=== PATIENT | female | born 1960 | race Caucasian/White ===

== ENCOUNTER 2017-03-13 14:13 | Emergency (ER) | payer BC ==
[2017-03-13] MEDS ORDERED: BENADRYL 50 MG/ML IV ONE (14:37)
[2017-03-13] MEDS ORDERED: MORPHINE SULFATE 10 MG/ML IV ONE (14:37)
[2017-03-13] MEDS ORDERED: Sodium Chloride 0.9% 1000 ML 1,000 ML IV STA (14:37)
[2017-03-13] MEDS ORDERED: Sodium Chloride 0.9% 1000 ML 1,000 ML ONE (14:40)
[2017-03-13] MEDS ORDERED: MORPHINE SULFATE 10 MG/ML ONE (14:40)
[2017-03-13] MEDS ORDERED: BENADRYL 50 MG/ML ONE (14:40)
[2017-03-13] MEDS ORDERED: MORPHINE SULFATE 4 MG INJ IV ONE (14:54)
[2017-03-13] MEDS ORDERED: MORPHINE SULFATE 4 MG INJ ONE (14:56)
[2017-03-13 15:00] LABS: Mean Cell Volume 94.7 fl (78-100); Mean Corpuscular Hemoglobin 30.8 pg (26-32); Mean Platelet Volume 10.6 fl (6-9.5); Platelet Count 301 K/mm3 (150-450); Red Blood Count 4.12 M/mm3 (4.1-5.4); Red Cell Distribution Width 13.4 % (11.5-14.0); White Blood Count 11.6 K/mm3 (4.0-10.5)
[2017-03-13 15:01] LABS: Collection Type CLEAN CATCH
[2017-03-13 15:02] LABS: COMPLETE URINE MICROSCOPIC? NO
--- NOTE | 2017-03-13 15:04 | ERPHSYRPT ---
- History of Present Illness Time Seen by Provider: 03/13/17 14:35 Source: patient Patient Subjective Stated Complaint: pt co pain to left abd area that radiates to back woke her up suddenly ,with some nausea Triage Nursing Assessment: pt alert,walked in, thrashing in bed, abd soft and tender to touch Physician History: CC: left flank pain Hx: 56 y/o patient of [facility] [employer] with hx of kidney stone disease. She works as nurse. [place] [employer] a little nausea this AM. Was sleeping and awoke [employer] with severe pain left abd and left flank. Normal urination. Nausea without vomiting. No fever or chills. A year since prior kidney stone. Timing/Duration: today Severity: severe Allergies/Adverse Reactions: bupropion HCl [From Wellbutrin] Allergy (Verified 03/13/17 14:24) Sulfa (Sulfonamide Antibiotics) Adverse Reaction (Verified 03/13/17 14:24) tramadol HCl [From Ultram] Adverse Reaction (Verified 03/13/17 14:24) Home Medications: Albuterol 8 gm Mdi Hfa [Ventolin Hfa MDI] 8 gm IH QID 03/16/15 [History] Hydrocodone Bit/Acetaminophen [[place] 7.5-325 Tablet] 1 ea PO QID 03/16/15 [ History] Ezetimibe 10 mg [Zetia 10 MG] 10 mg PO DAILY 04/03/16 [History] Omeprazole 20 MG [Prilosec 20 mg] 20 mg PO DAILY 04/03/16 [History] Hx Tetanus, Diphtheria Vaccination/Date Given: Yes Hx Influenza Vaccination/Date Given: Yes Hx Pneumococcal Vaccination/Date Given: No Immunizations Up to Date: Yes - Review of Systems Constitutional: No Fever, No Chills Eyes: No Symptoms Ears, Nose, & Throat: No Symptoms Respiratory: No Cough Cardiac: No Chest Pain Abdominal/Gastrointestinal: Abdominal Pain (left flank), Nausea, No Vomiting Genitourinary Symptoms: Flank Pain (left), No Hematuria Skin: No Rash Neurological: No Headache All Other Systems: Reviewed and Negative - Past Medical History Pertinent Past Medical History: Yes Neurological History: No Pertinent History ENT History: No Pertinent History Cardiac History: No Pertinent History Respiratory History: COPD Endocrine Medical History: No Pertinent History Musculoskeletal History: No Pertinent History GI Medical History: Diverticulitis, Diverticulosis, GERD, Hernia History: Other Psycho-Social History: No Pertinent History Female Reproductive Disorders: No Pertinent History Other Medical History: KIDNEY STONE IN PAST. UMBILICAL HERNIA REPAIR - Past Surgical History Past Surgical History: Yes Neuro Surgical History: No Pertinent History Cardiac: No Pertinent History Respiratory: No Pertinent History Gastrointestinal: Rectal Surgery Genitourinary: No Pertinent History Musculoskeletal: No Pertinent History Female Surgical History: Hysterectomy Other Surgical History: BLADDER LIFT. RECTAL PROLAPSE FIX - Social History Smoking Status: Current every day smoker How long have you smoked: 30 Exposure to second hand smoke: Yes Drug Use: none Patient Lives Alone: No - Female History Hx Last Menstrual Period: hyster - Nursing Vital Signs Nursing Vital Signs: Initial Vital Signs Pulse Rate 77 Respiratory Rate 16 Blood Pressure [Right Arm] 104/55 Pain Intensity 3 - Physical Exam General Appearance: alert, other (uncomfortable appearing) Eye Exam: PERRL/EOMI Ears, Nose, Throat Exam: normal ENT inspection, moist mucous membranes Neck Exam: normal inspection, non-tender, supple Respiratory Exam: normal breath sounds, lungs clear Cardiovascular Exam: regular rate/rhythm Gastrointestinal/Abdomen Exam: soft, No tenderness, No distention, No mass, No guarding Back Exam: CVA tenderness (left) Extremity Exam: normal inspection, normal range of motion Neurologic Exam: alert, oriented x 3, cooperative, sensation nml, No motor deficits Skin Exam: warm, dry, No rash SpO2 Interpretation: normal SpO2: 97 Oxygen Delivery: Room Air - Course Nursing assessment & vital signs reviewed: Yes Ordered Tests: Active Orders 24 hr Category Date Time Status Clean Catch Urine Specimen STAT Care 03/13/17 14:37 Active IV Insertion STAT Care 03/13/17 14:37 Active ABDOMEN AND PELVIS W/0 CONTRAS [CT] Stat Exams 03/13/17 14:38 Taken CBC W DIFF Stat Lab 03/13/17 14:35 Completed CMP Stat Lab 03/13/17 14:35 Completed Manual Differential NC Stat Lab 03/13/17 14:35 Completed UA Stat Lab 03/13/17 15:00 Completed Medication Summary Discontinued Medications Generic Name Dose Route Start Last Admin Trade Name Freq PRN Reason Stop Dose Admin Diphenhydramine HCl 25 mg 03/13/17 14:37 03/13/17 14:48 Benadryl 50 Mg/Ml IV 03/13/17 14:38 25 mg STAT ONE Administration Diphenhydramine HCl Confirm 03/13/17 14:40 Benadryl 50 Mg/Ml Administered 03/13/17 14:41 Dose 50 mg .ROUTE .STK-MED ONE Sodium Chloride 1,000 mls @ 999 mls/hr 03/13/17 14:37 03/13/17 14:51 Sodium Chloride 0.9% 1000 Ml IV 03/13/17 15:37 999 mls/hr .Q1H1M STA Administration Sodium Chloride Confirm 03/13/17 14:40 Sodium Chloride 0.9% 1000 Ml Administered 03/13/17 14:41 Dose 1,000 mls @ ud .ROUTE .STK-MED ONE Morphine Sulfate 5 mg 03/13/17 14:37 03/13/17 14:50 Morphine Sulfate 10 Mg/Ml IV 03/13/17 14:38 5 mg STAT ONE Administration Morphine Sulfate Confirm 03/13/17 14:40 Morphine Sulfate 10 Mg/Ml Administered 03/13/17 14:41 Dose 10 mg .ROUTE .STK-MED ONE Morphine Sulfate 4 mg 03/13/17 14:54 03/13/17 15:00 Morphine Sulfate 4 Mg Inj IV 03/13/17 14:55 4 mg STAT ONE Administration Morphine Sulfate Confirm 03/13/17 14:56 Morphine Sulfate 4 Mg Inj Administered 03/13/17 14:57 Dose 4 mg .ROUTE .STK-MED ONE Lab/Rad Data: Laboratory Result Diagrams 03/13/17 14:35 03/13/17 14:35 Laboratory Results 03/13/17 03/13/17 03/13/17 Range/Units 15:00 14:35 14:35 WBC 11.6 H (4.0-10.5) K/mm3 RBC 4.12 (4.1-5.4) M/mm3 Hgb 12.7 (12.0-16.0) gm/dl Hct 39.0 (35-47) % MCV 94.7 (78-100) fl MCH 30.8 (26-32) pg MCHC 32.6 (32-36) g/dl RDW 13.4 (11.5-14.0) % Plt Count 301 (150-450) K/mm3 MPV 10.6 H (6-9.5) fl Segmented Neutrophils 48 (36.0-66.0) % Lymphocytes (Manual) 46 H (24-44) % Monocytes (Manual) 4 (0.0-12.0) % Eosinophils (Manual) 2 (0.00-3.0) % Platelet Estimate NORMAL (NORMAL) Sodium 143 (136-145) mEq/L Potassium 4.0 (3.5-5.1) mEq/L Chloride 106 (98-107) mEq/L Carbon Dioxide 28.8 (21-32) mEq/L Anion Gap 12.3 (5-15) MEQ/L BUN 10 (9-20) mg/dL Creatinine 0.83 (0.55-1.30) mg/dl Estimated GFR > 60 ML/MIN Glucose 102 (70-110) MG/DL Calcium 8.9 (8.5-10.1) mg/dL Total Bilirubin 0.4 (0.2-1.0) mg/dL AST 20 (15-37) U/L ALT 25 (12-78) U/L Alkaline Phosphatase 109 (46-116) U/L Serum Total Protein 7.1 (6.4-8.2) gm/dL Albumin 3.7 (3.4-5.0) g/dL Ur Collection Type CLEAN CATCH Urine Color YELLOW (YELLOW) Urine Appearance CLEAR (CLEAR) Urine pH 6.0 (5-6) Ur Specific [place]rence 1.020 (1.005-1.025) Urine Protein NEGATIVE (Negative) Urine Glucose (UA) NEGATIVE (NEGATIVE) mg/dL Urine Ketones NEGATIVE (NEGATIVE) Urine Nitrite NEGATIVE (NEGATIVE) Urine Bilirubin NEGATIVE (NEGATIVE) Urine Urobilinogen 0.2 (0-1) mg/dL Urine WBC (Auto) NEGATIVE (NEGATIVE) Urine RBC (Auto) NEGATIVE (0-5) Andres/ul Specimen Received 03/13/17 1500 - Progress Progress Note: 03/13/17 15:[address] to assess for renal stone disease. 03/13/17 16:[address] Likely just passed. Pain better. Will release with renal stone instr. Counseled pt/family regarding: lab results, diagnosis, need for follow-up, rad results - Departure Time of Disposition: 16:06 Departure Disposition: Home Clinical Impression: Renal colic on left side, Bladder stone Condition: Stable Critical Care Time: No Referrals: SHANEKA LARKIN, SORAIDA [Primary Care Provider] - Instructions: Kidney Stones Additional Instructions: Plenty of fluids. No driving today. Use your ibuprofen and hydrocodone as already prescribed for pain. Return for fever, recurrent vomiting, uncontrolled pain, or concerns. Follow up next week with SORAIDA Larkin. Strain urine for stone.
[2017-03-13 15:19] LABS: ALBUMIN 3.7 g/dL (3.4-5.0); ALKALINE PHOSPHATASE 109 U/L (46-116); ANION GAP 12.3 MEQ/L (5-15); BILIRUBIN,TOTAL 0.4 mg/dL (0.2-1.0); BLOOD UREA NITROGEN 10 mg/dL (9-20); CHLORIDE 106 mEq/L (98-107); Carbon Dioxide 28.8 mEq/L (21-32); Glucose 102 MG/DL (70-110); SGOT/AST 20 U/L (15-37); SGPT/ALT 25 U/L (12-78); SODIUM 143 mEq/L (136-145); Total Protein 7.1 gm/dL (6.4-8.2)
[2017-03-13 15:43] LABS: Eosinophil 2 % (0.00-3.0); Platelet Estimate NORMAL (NORMAL); Total Cells Counted 100
--- NOTE | 2017-03-13 16:12 | XRAY ---
Exam: CT of the abdomen and pelvis without IV contrast from 03/13/2017. CTDI: 15.44 Comparison: CT of the abdomen and pelvis without IV contrast from 04/03/2016. Indication: Left flank pain since this morning, prior history of renal stones. Technique: Non-IV contrast axial images were obtained through the abdomen and pelvis. Reconstructed coronal and sagittal images were created and reviewed. Findings: A prominent calcified granuloma is seen within the right middle lobe representing no change. The remainder the visualized lung bases appears clear. I cannot exclude a small hiatal hernia. Compared to the prior study, the left renal pelvis is distended. There is occasional slight prominence of the left ureter, but no definite ureterolith is seen. I do note a tiny calcification within the urinary bladder posteriorly in the midline. This is suggestive of a recently passed left ureteral stone. The right kidney reveals no calculi or hydronephrosis. I see no definite right ureteral stone. Assessment of the solid organs is limited on non-IV contrast study. However, no significant abnormality of the liver, spleen, pancreas, or adrenal glands is seen. There is mild distention of the gallbladder which reveals no dense calcifications within it or gallbladder wall thickening. Moderate atherosclerotic vascular calcification is seen within the abdominal aorta, iliac arteries, and both common femoral arteries. Correlate clinically regarding diabetes. No abnormal retroperitoneal lymphadenopathy is seen. No bowel distention is seen. No free air or free fluid is seen. A tiny fat-containing umbilical hernia is seen. Surgical clips are seen within the right hemipelvis representing no change. Apparently, the patient is status post appendectomy and hysterectomy. The ovaries are not definitely seen and have presumably been removed surgically as well. I note mild sigmoid colon diverticulosis without evidence of diverticulitis. Scattered stool is seen throughout the colon, the largest amount seen within the distal rectosigmoid colon. Correlate clinically regarding constipation. The urinary bladder is partially empty. The skeleton reveals moderate to marked degenerative disc disease at L5-S1 which appears similar to the prior study. No acute fracture or aggressive bone lesion is seen. Impression: 1. I note mild left-sided pelvocaliectasis. No significant left ureteral distention is seen, although I see a tiny punctate calcification within the posterior urinary bladder midline suggestive of a recently passed stone, probably from the left. 2. Prior significant right-sided hydronephrosis noted on 04/03/2016 is no longer seen indicating resolution of obstruction on this side. Nor do I see a right ureteral stone. 2. Questionable small hiatal hernia and tiny fat-containing umbilical hernia. 3. Surgical clips are seen within the right hemipelvis. I'm given a history of prior appendectomy and hysterectomy. There may have been prior oophorectomy as well. 4. Sigmoid colon diverticulosis without evidence of acute diverticulitis. Stool burden is mild to moderate within the colon, most pronounced within the distal rectosigmoid colon. 5. No other acute process is seen within the abdomen or pelvis. Moderate atherosclerotic vascular calcification is seen. Correlate clinically regarding diabetes. 6. Advanced degenerative disc disease is seen at L5-S1 representing no significant change from 04/03/2016.
[2017-03-13 16:21] VITALS: BP 105/55; PULSE 68; O2SAT 98
== END 2017-03-13 16:21 | disposition home or self-care (01) ==
LOC: ED 14:13
DX: N23 Unspecified renal colic (principal); N21.0 Calculus in bladder; R11.0 Nausea; R10.9 Unspecified abdominal pain
CPT/HCPCS: 36000; 36415; 74176; 80053; 81002; 85025; 96360; 96374; 96375; 96376; 99284; J1200; J2270

== ENCOUNTER 2022-08-22 18:19 | Emergency (ER) | payer BC, OTHER ==
[2022-08-22] MEDS ORDERED: ZOFRAN ODT 4 MG PO ONE (19:10)
[2022-08-22] MEDS ORDERED: Hydromorphone 1 mg/ml Injection IM ONE (19:10)
[2022-08-22] MEDS ORDERED: ZOFRAN ODT 4 MG ONE (19:15)
[2022-08-22] MEDS ORDERED: Hydromorphone 1 mg/ml Injection ONE (19:15)
--- NOTE | 2022-08-22 19:21 | ERPHSYRPT ---
- History of Present Illness Time Seen by Provider: 08/22/22 19:00 Source: patient, family Exam Limitations: no limitations Patient Subjective Stated Complaint: Left ankle/foot pain Triage Nursing Assessment: Patient brought back to ED per w/c and transferred self to bed. Patient A+ O X 3. Patient's skin pink, warm and dry. Patient complains of left ankle foot injury. Patient states she was in a patient's room for her job and slipped on liquid that was on the floor and causing her to land on her left ankle. Patient complains of pain 10/10 to left ankle/foot. Swelling noted to left ankle/foot. 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 Initially, patient was able to bear weight. However when she sat down for a bit and then attempted to stand up and put weight on it, she had excruciating pain in the left heel and left ankle. Patient states that she has had [place] in the past, morphine in the past and Dilaudid in the past all without any problems. Method of Injury: twisted Occurred: just prior to arrival Quality: constant, aching, throbbing Severity of Pain-Max: moderate Severity of Pain-Current: moderate Lower Extremities Pain: foot: left, ankle: left Modifying Factors: Improves With: movement Associated Symptoms: other (To bear weight) Allergies/Adverse Reactions: bupropion HCl [From Wellbutrin] Allergy (Verified 08/22/22 18:47) Sulfa (Sulfonamide Antibiotics) Adverse Reaction (Verified 08/22/22 18:47) tramadol HCl [From Ultram] Adverse Reaction (Verified 08/22/22 18:47) Home Medications: Albuterol 8 gm Mdi Hfa [Ventolin Hfa MDI] 8 gm IH QID 03/16/15 [History] Hydrocodone/Acetaminophen [[place] 7.5-325 Tablet] 1 ea PO QID 03/16/15 [History] Ezetimibe 10 mg [Zetia 10 MG] 10 mg PO DAILY 04/03/16 [History] Omeprazole 20 MG [Prilosec 20 mg] 20 mg PO DAILY 04/03/16 [History] Hx Tetanus, Diphtheria Vaccination/Date Given: Yes Hx Influenza Vaccination/Date Given: Yes Hx Pneumococcal Vaccination/Date Given: No Immunizations Up to Date: Yes Travel Risk - International Travel Have you traveled outside of the country in past 3 weeks: No - Coronavirus Screening Are you exhibiting any of the following symptoms?: No Close contact with a COVID-19 positive Pt in past 14-21 Days: No - Vaccine Status Have you recieved a Covid-19 vaccination: Yes [employer]: [employer] - Vaccination Dates Date of 2cond Vaccination (if applicable): na - Review of Systems Constitutional: No Symptoms Eyes: No Symptoms Ears, Nose, & Throat: No Symptoms Respiratory: No Symptoms Cardiac: No Symptoms Abdominal/Gastrointestinal: No Symptoms Genitourinary Symptoms: No Symptoms Musculoskeletal: Fall, Injury (Left foot and ankle) Skin: No Symptoms Neurological: No Symptoms Psychological: No Symptoms Endocrine: No Symptoms Hematologic/Lymphatic: No Symptoms Immunological/Allergic: No Symptoms All Other Systems: Reviewed and Negative - Past Medical History Pertinent Past Medical History: Yes Neurological History: No Pertinent History ENT History: No Pertinent History Cardiac History: High Cholesterol Respiratory History: COPD Endocrine Medical History: No Pertinent History Musculoskeletal History: Arthritis, Degenerative Disk Disease GI Medical History: Diverticulitis, Diverticulosis, GERD, Hernia History: Other Psycho-Social History: No Pertinent History Female Reproductive Disorders: No Pertinent History Other Medical History: KIDNEY STONE IN PAST. UMBILICAL HERNIA REPAIR - Past Surgical History Past Surgical History: Yes Neuro Surgical History: No Pertinent History Cardiac: No Pertinent History Respiratory: No Pertinent History Gastrointestinal: Rectal Surgery Genitourinary: No Pertinent History Musculoskeletal: No Pertinent History Female Surgical History: Hysterectomy Other Surgical History: BLADDER LIFT. RECTAL PROLAPSE FIX - Social History Smoking Status: Current every day smoker How long have you smoked: 30 Exposure to second hand smoke: No Drug Use: none Patient Lives Alone: No - Nursing Vital Signs Nursing Vital Signs: Initial Vital Signs Temperature 97.3 F 08/22/22 18:48 Pulse Rate 83 08/22/22 18:48 Respiratory Rate 18 08/22/22 18:48 Blood Pressure 111/92 08/22/22 18:48 O2 Sat by Pulse Oximetry 98 08/22/22 18:48 Pain Scale Pain Intensity 5 - Physical Exam General Appearance: mild distress, alert, anxiety, thin Eyes, Ears, Nose, Throat Exam: normal ENT inspection, moist mucous membranes Neck Exam: normal inspection, non-tender, supple, full range of motion Cardiovascular/Respiratory Exam: chest non-tender, no respiratory distress Gastrointestinal/Abdominal Exam: non-tender Back Exam: normal inspection, normal range of motion, No CVA tenderness, No vertebral tenderness Hips Exam: bilateral: non-tender, normal inspection, normal range of motion, no evidence of injury Legs Exam: bilateral leg: non-tender, normal inspection, normal range of motion, no evidence of injury Knees Exam: bilateral knee: non-tender, normal inspection, normal range of motion, no evidence of injury Ankle Exam: right ankle: non-tender, normal inspection, no evidence of injury, left ankle: bone tenderness, soft tissue tenderness, swelling (+/-), bilateral ankle: normal range of motion Foot Exam: right foot: non-tender, left foot: bone tenderness (Left heel), soft tissue tenderness, bilateral foot: normal inspection, normal range of motion, no evidence of injury Neuro/Tendon Exam: normal sensation, normal motor functions, normal tendon functions, responds to pain, no evidence tendon injury Mental Status Exam: alert, oriented x 3, cooperative Skin Exam: normal color, warm, dry SpO2 Interpretation: normal SpO2: 98 O2 Delivery: Room Air - Course Nursing assessment & vital signs reviewed: Yes Ordered Tests: Active Orders 24 hr Category Date Time Status Cold Application STAT Care 08/22/22 18:46 Active ANKLE (3 VIEWS) Stat Exams 08/22/22 19:19 Taken FOOT (MINIMUM 3 VIEWS) Stat Exams 08/22/22 19:19 Taken Medication Summary Discontinued Medications Generic Name Dose Route Start Last Admin Trade Name Emerald PRN Reason Stop Dose Admin Hydromorphone HCl 1 mg 08/22/22 19:10 08/22/22 19:17 Hydromorphone 1 Mg/1ml Inj 1 Mg/Ml Syringe IM 08/22/22 19:11 1 mg STAT ONE Administration Hydromorphone HCl Confirm 08/22/22 19:15 Hydromorphone 1 Mg/1ml Inj 1 Mg/Ml Syringe Administered 08/22/22 19:16 Dose 1 mg .ROUTE .STK-MED ONE Ondansetron HCl 4 mg 08/22/22 19:10 08/22/22 19:17 Zofran 4 Mg/Udtablet Orally Disintegrating PO 08/22/22 19:11 4 mg STAT ONE Administration Ondansetron HCl Confirm 08/22/22 19:15 Zofran 4 Mg/Udtablet Orally Disintegrating Administered 08/22/22 19:16 Dose 4 mg .ROUTE .STK-MED ONE - Progress Progress: improved, pain not gone completely, re-examined Progress Note: 08/22/22 20:45 X-ray of left foot shows no acute fracture or dislocation. X-ray of left ankle shows no acute fracture or dislocation. Counseled pt/family regarding: diagnosis, need for follow-up, rad results - Departure Departure Disposition: Home Clinical Impression: Left ankle sprain Condition: Stable Critical Care Time: No Referrals: GHASSAN VALENZUELA NP [Primary Care Provider] - Follow up/PCP as directed Additional Instructions: Wear Varun wrap for comfort. May use crutches to help in slowly increasing your weightbearing. Follow[facility]up at the [facility] orthopedic clinic Monday through Monday 8 AM to 10 AM if your symptoms worsen or persist beyond 48 hours. When you are home, elevate your left leg above the level of your heart. Ice pack to the left foot and ankle 3 times a day for the next 48 hours. Take your own pain medication.
[2022-08-22 21:08] VITALS: BP 132/54; PULSE 72; O2SAT 96
--- NOTE | 2022-08-23 08:50 | XRAY ---
Indication: Pain following fall. Comparison: None 3 nonweightbearing views left foot demonstrates mild osteopenia, tiny plantar heel spur, and tiny cuboid accessory ossicle. No other bony, articular, or soft tissue abnormalities.
--- NOTE | 2022-08-23 08:51 | XRAY ---
Indication: Pain following fall. Comparison: None 3 view left ankle demonstrates mild osteopenia and tiny plantar heel spur. No other bony, articular, or soft tissue abnormalities.
== END 2022-08-22 21:21 | disposition home or self-care (01) ==
LOC: ED 18:19
DX: S93.402A Sprain of unspecified ligament of left ankle, initial encounter (principal); W01.0XXA Fall on same level from slipping, tripping and stumbling without subsequent striking against object, initial encounter; Y93.F9 Activity, other caregiving; Y92.122 Bedroom in nursing home as the place of occurrence of the external cause; Y99.0 Civilian activity done for income or pay; M25.572 Pain in left ankle and joints of left foot; E78.5 Hyperlipidemia, unspecified; J44.9 Chronic obstructive pulmonary disease, unspecified; Z72.0 Tobacco use; Z79.899 Other long term (current) drug therapy
CPT/HCPCS: 73610; 73630; 96372; 99283; J1170; Q0162

== ENCOUNTER 2022-11-10 18:37 | Emergency (ER) | payer BC ==
[2022-11-10 19:23] LABS: ALBUMIN 4.3 g/dL (3.5-5.0); ALKALINE PHOSPHATASE 122 U/L (38-126); ANION GAP 11.7 MEQ/L (5-15); BLOOD UREA NITROGEN 22 mg/dL (7-17); CHLORIDE 102 mmol/L (98-107); Calcium 9.2 mg/dL (8.4-10.2); Carbon Dioxide 23 mmol/L (22-30); Creatinine 1 0.74 mg/dL (0.52-1.04); EST GLOMERULAR FILTRATION RATE > 60.0 ML/MIN; Glucose 139 mg/dL (74-106); NT PRO BNP 50.4 pg/mL (0-900); Potassium 3.5 mmol/L (3.5-5.1); SGOT/AST 36 U/L (14-36); SGPT/ALT 32 U/L (0-35); SODIUM 134 mmol/L (137-145); Total Protein 7.9 g/dL (6.3-8.2)
--- NOTE | 2022-11-10 20:51 | ERPHSYRPT ---
- History of Present Illness Time Seen by Provider: 11/10/22 20:26 Source: patient Exam Limitations: no limitations Patient Subjective Stated Complaint: Pt states "I have been sick since around 10/29/22, I went to [facility] on 10/31/22 with swollen glands, sore throat and fa tigue. I was prescribed cefdinir and I take my tomorrow. I went back today because I am still fatigued, short of breath when doing something and lost my taste. I was tested for covid today and was negative. The provider called me tonight and told me to come to ER because I may have a pulmonary embolus. Triage Nursing Assessment: Patient ambulated to cot with steady upright gait. Alert and oriented x3. No apparent respiratory distress. Pt presents under instruction by SORAIDA Thompson at [facility] due to elevated d-dimer. Pt has been sick since approx 10/29/22 with cough, sore throat, fatigue. Pt reports some shortness of breath with activity. Physician History: 61 years old female presented in the ER with chief complaint of cough congestion, sore throat, weak feeling weak fatigued tired for the last 2 weeks. Patient was evaluated at [facility], was given a round of steroid and antibiotics which she finished and did not feel much improvement. Patient was seen in the [facility] again today and had his blood work done with a normal white count but had elevated D-dimers and positive mono necklaces and sent patient in the ER for further evaluation of pulmonary embolism. Patient does report having some dyspnea on exertion but denies any chest pain. Patient report he feels weak fatigued and tired with minimal exertion. Still have swollen glands in the neck. Denies any abdominal pain. Timing/Duration: week(s), gradual onset, worse Cough Quality/Degree: moderate, dry cough, productive cough Possible Cause: unknown cause Modifying Factors: Worsens With: coughing, exertion Associated Symptoms: chest pain/soreness, cough, muscle aches, nasal congestion, sinus infection, sore throat, No shortness of breath Allergies/Adverse Reactions: bupropion HCl [From Wellbutrin] Allergy (Verified 08/22/22 18:47) Sulfa (Sulfonamide Antibiotics) Adverse Reaction (Verified 08/22/22 18:47) tramadol HCl [From Ultram] Adverse Reaction (Verified 08/22/22 18:47) Home Medications: Albuterol 8 gm Mdi Hfa [Ventolin Hfa MDI] 8 gm IH QID 03/16/15 [History] Hydrocodone/Acetaminophen [[place] 7.5-325 Tablet] 7.5 mg PO BID PRN 03/16/15 [History] Budesonide/Formoterol Fumarate [Budesonide-Formoterol 160-4.5] 1 puff IH DAILY 11/10/22 [History] Cefdinir 300 mg PO BID 11/10/22 [History] Hx Tetanus, Diphtheria Vaccination/Date Given: Yes Hx Influenza Vaccination/Date Given: No Hx Pneumococcal Vaccination/Date Given: No Travel Risk - International Travel Have you traveled outside of the country in past 3 weeks: No - Coronavirus Screening Are you exhibiting any of the following symptoms?: Yes Symptoms: Cough: New Onset, Shortness of Breath, Loss of Taste or Smell, Headaches/Body Aches/Fatigue Close contact with a COVID-19 positive Pt in past 14-21 Days: No - Vaccine Status Have you recieved a Covid-19 vaccination: Yes 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[employer] [place] - Vaccination Dates Date of 2cond Vaccination (if applicable): 12/05/2020 - Review of Systems Constitutional: Fatigue, Weakness Eyes: No Symptoms Ears, Nose, & Throat: Nose Congestion Respiratory: Cough, Dyspnea Cardiac: No Symptoms Abdominal/Gastrointestinal: No Symptoms Genitourinary Symptoms: No Symptoms Musculoskeletal: Myalgias Skin: No Symptoms Neurological: No Symptoms Psychological: No Symptoms Hematologic/Lymphatic: No Symptoms Immunological/Allergic: No Symptoms - Past Medical History Pertinent Past Medical History: Yes Neurological History: No Pertinent History ENT History: No Pertinent History Cardiac History: High Cholesterol Respiratory History: COPD Endocrine Medical History: No Pertinent History Musculoskeletal History: Arthritis, Degenerative Disk Disease GI Medical History: Diverticulitis, Diverticulosis, GERD, Hernia History: Other Psycho-Social History: No Pertinent History Female Reproductive Disorders: No Pertinent History Other Medical History: KIDNEY STONE IN PAST. UMBILICAL HERNIA REPAIR - Past Surgical History Past Surgical History: Yes Neuro Surgical History: No Pertinent History Cardiac: No Pertinent History Respiratory: No Pertinent History Gastrointestinal: Rectal Surgery Genitourinary: No Pertinent History Musculoskeletal: No Pertinent History Female Surgical History: Hysterectomy Other Surgical History: BLADDER LIFT. RECTAL PROLAPSE FIX - Social History Smoking Status: Current every day smoker How long have you smoked: 30 Exposure to second hand smoke: No Drug Use: none Patient Lives Alone: No - Nursing Vital Signs Nursing Vital Signs: Initial Vital Signs Temperature 98.7 F 11/10/22 18:44 Pulse Rate 101 H 11/10/22 18:44 Respiratory Rate 18 11/10/22 18:44 Blood Pressure 134/70 11/10/22 18:44 O2 Sat by Pulse Oximetry 97 11/10/22 18:44 Pain Scale Pain Intensity 0 - Physical Exam General Appearance: no apparent distress, alert Eye Exam: PERRL/EOMI Ears, Nose, Throat Exam: normal ENT inspection, TMs normal, pharynx normal, moist mucous membranes Neck Exam: normal inspection, non-tender, supple, full range of motion Respiratory Exam: normal breath sounds, lungs clear Cardiovascular Exam: regular rate/rhythm, normal heart sounds Gastrointestinal/Abdomen Exam: soft, normal bowel sounds, No tenderness Back Exam: normal inspection, normal range of motion Extremity Exam: normal inspection, normal range of motion Neurologic Exam: alert, oriented x 3, cooperative, motion designer II-XII nml as tested Skin Exam: normal color SpO2 Interpretation: normal SpO2: 97 O2 Delivery: Room Air - Course EKG Interpreted by Me: RATE ([id number]), Sinus Rhythm, NORMAL AXIS, NORMAL INTERVALS, Non-specific ST Changes Ordered Tests: Active Orders 24 hr Category Date Time Status EKG-ER Only STAT Care 11/10/22 18:41 Completed CHEST WITH CONTRAST [CT] Stat Exams 11/10/22 19:48 Taken CMP Stat Lab 11/10/22 18:45 Completed NT PRO BNP Stat Lab 11/10/22 18:45 Completed TROPONIN Q4H Lab 11/10/22 18:45 Completed Lab/Rad Data: Laboratory Result Diagrams 11/10/22 18:45 Laboratory Results 11/10/22 11/10/22 Range/Units 18:45 18:45 Sodium 134 L (137-145) mmol/L Potassium 3.5 (3.5-5.1) mmol/L Chloride 102 (98-107) mmol/L Carbon Dioxide 23 (22-30) mmol/L Anion Gap 11.7 (5-15) MEQ/L BUN 22 H (7-17) mg/dL Creatinine 0.74 (0.52-1.04) mg/dL Estimated GFR > 60.0 ML/MIN Glucose 139 H (74-106) mg/dL Calcium 9.2 (8.4-10.2) mg/dL Total Bilirubin 0.60 (0.2-1.3) mg/dL AST 36 (14-36) U/L ALT 32 (0-35) U/L Alkaline Phosphatase 122 (38-126) U/L Troponin I < 0.012 (0.000-0.034) ng/mL NT-Pro-B Natriuret Pep 50.4 (0-900) pg/mL Serum Total Protein 7.9 (6.3-8.2) g/dL Albumin 4.3 (3.5-5.0) g/dL - Progress Progress: re-examined, unchanged Air Movement: good Progress Note: 11/10/22 20:47 Patient is not in any distress. EKG showed normal sinus rhythm with no acute ischemic changes and negative troponins. Obtained CTA chest which is negative for pulmonary embolism, pneumonia, pneumothorax. No cardiomegaly. Has normal BNP. No history of CAD. I believe patient's symptoms are viral etiology, recommended supportive care and steroids. Outpatient follow-up recommended. Discussed signs symptoms of worsening needing return to ER which she seems understanding. Blood Culture(s) Obtained: No Antibiotics given: No Counseled pt/family regarding: lab results, diagnosis, need for follow-up, rad results - Departure Departure Disposition: Home Clinical Impression: Bronchitis, Mononucleosis syndrome Condition: Stable Critical Care Time: No Referrals: GHASSAN VALENZUELA NP [Primary Care Provider] - Follow up/PCP as directed (1-2 days for re evaluation) Instructions: Acute Bronchitis Additional Instructions: Tinea with steroids. Follow-up with your primary care for reevaluation. Return to ER for any worsening.
[2022-11-10 20:55] VITALS: BP 122/63; PULSE 90
[2022-11-10 22:02] VITALS: O2SAT 97
--- NOTE | 2022-11-11 08:34 | XRAY ---
Indication: Cough and short of breath. Pulmonary embolus. Positive mononucleosis. Multiple contiguous axial images obtained through the chest using 80 cc Isovue 370 contrast and PE protocol. Comparison: None Good opacification of the pulmonary arteries including lobar and segmental branches. No pulmonary embolus. Heart is not enlarged. Aorta is mildly arteriosclerotic without aneurysm/dissection. No pathologic mediastinal/hilar lymphadenopathy. Small hiatal hernia. Lungs hyperinflated with a few calcified granulomas, largest posterior right lower lobe. No suspicious pulmonary mass, infiltrate, effusion, or pneumothorax. Bony thorax intact with minimal degenerative changes throughout spine. Limited upper abdomen demonstrate mild fatty liver. Impression: 1. Negative pulmonary embolus. No acute cardiopulmonary abnormalities. 2. Incidental small hiatal hernia, fatty liver, chronic bony findings, and old granulomatous disease.
== END 2022-11-10 21:00 | disposition home or self-care (01) ==
LOC: ED 18:37
DX: J40 Bronchitis, not specified as acute or chronic (principal); B27.90 Infectious mononucleosis, unspecified without complication; R79.1 Abnormal coagulation profile; R05.9 Cough, unspecified; R09.81 Nasal congestion; J02.9 Acute pharyngitis, unspecified; R53.1 Weakness; R06.09 Other forms of dyspnea; Z79.899 Other long term (current) drug therapy; E78.5 Hyperlipidemia, unspecified; J44.9 Chronic obstructive pulmonary disease, unspecified; Z72.0 Tobacco use
CPT/HCPCS: 36415; 71260; 80053; 83880; 84484; 93005; 99283